=== PATIENT | male | born 1960 | race Caucasian/White ===

== ENCOUNTER 2024-12-10 20:17 | Inpatient (IN) | payer MEDICARE ==
[~2024-12-10] VITALS: Ht 180.3 cm; Wt 68.5 kg
[2024-12-10] MEDS ORDERED: AMIN1TAB PO (20:53)
[2024-12-10] MEDS ORDERED: CALC300T4 PO (20:53)
[2024-12-10] MEDS ORDERED: SUCR1TAB PO (20:53)
[2024-12-10] MEDS ORDERED: SPIR25TA6 PO (20:53)
[2024-12-10] MEDS ORDERED: PANT40TA2 PO (20:53)
[2024-12-10] MEDS ORDERED: LORA0.5T48 PO (20:53)
[2024-12-10] MEDS ORDERED: POLY250017 PO (20:53)
[2024-12-10] MEDS ORDERED: METO25TA6 PO (20:53)
[2024-12-10] MEDS ORDERED: BUME2TAB7 PO (20:53)
[2024-12-10] MEDS ORDERED: GABA-532 PO (20:53)
[2024-12-10] MEDS ORDERED: MAGN400O6 PO (20:53)
[2024-12-10] MEDS ORDERED: ATOR20TA PO (20:53)
[2024-12-10] MEDS ORDERED: NITR0.4T SL (20:53)
[2024-12-10] MEDS ORDERED: HYDR-894 PO (20:53)
[2024-12-10] MEDS ORDERED: NICO-671 TD (20:53)
[2024-12-10] MEDS ORDERED: ACET-3117 PO (20:53)
[2024-12-10] MEDS ORDERED: NA P133E RC (20:53)
[2024-12-10] MEDS ORDERED: SENN-18 PO (20:53)
[2024-12-10] MEDS ORDERED: MULT-213 PO (20:53)
[2024-12-10] MEDS ORDERED: BISA10SU61 RC (20:53)
[2024-12-10] MEDS ORDERED: LACT10SO58 PO (20:53)
[2024-12-10 21:09] LABS: BASOPHILS % (AUTO) 0.9 % (0.0-2.0); DIFFERENTIAL COMMENT 1; EOSINOPHILS # (AUTO) 0.1 K/uL (0.0-0.7); EOSINOPHILS % (AUTO) 2.3 % (0.0-7.0); HEMATOCRIT 27.6 % (36.7-47.1); HEMOGLOBIN 8.9 g/dL (12.5-16.3); LYMPHOCYTES # (AUTO) 0.8 K/uL (0.8-4.8); LYMPHOCYTES % (AUTO) 18.3 % (20.5-51.5); MEAN CORPUSCULAR HEMOGLOBIN 26.6 uug (23.8-33.4); MEAN CORPUSCULAR HGB CONC 32 g/dL (32.5-36.3); MEAN CORPUSCULAR VOLUME 82.6 fL (73.0-96.2); MONOCYTES # (AUTO) 0.7 K/uL (0.1-1.30); MONOCYTES % (AUTO) 14.1 % (0.0-11.0); NEUTROPHILS % (AUTO) 64.4 % (38.5-71.5); PLATELET COUNT (AUTO) 133 K/uL (152-348); RED BLOOD CELL COUNT(AUTO) 3.34 MIL/uL (4.06-5.63); RED CELL DISTRIBUTION WIDTH 19.2 % (12.1-16.2); WHITE BLOOD COUNT (AUTO) 4.6 K/uL (3.6-10.2)
[2024-12-10] MEDS: METOPROLOL TARTRATE 5 MG/5 ML VIAL IVP ONE (21:10)
[2024-12-10 21:16] LABS: CALCIUM 8.6 mg/dL (8.5-10.1); CARBON DIOXIDE 23 mmol/L (21-32); CHLORIDE 102 mmol/L (98-107); CREATININE 1.2 mg/dL (0.6-1.3); GLUCOSE 109 mg/dL (74-106); POTASSIUM 4.7 mmol/L (3.5-5.1); SODIUM SERUM 134 mmol/L (136-145); UREA NITROGEN, BLOOD 47 mg/dL (7-18)
[2024-12-10 21:19] LABS: MAGNESIUM 2.2 mg/dL (1.8-2.4)
[2024-12-10 21:30] LABS: ALANINE AMINOTRANSFERASE 38 U/L (16-63); ALBUMIN 3.1 g/dL (3.4-5.0); ALKALINE PHOSPHATASE 168 U/L (50-136); ASPARTATE AMINOTRANSFERASE 47 U/L (15-37); BILIRUBIN,DIRECT 0.3 mg/dL (0.0-0.2); BILIRUBIN,TOTAL 0.6 mg/dL (0.2-1.0); NT-PRO BNP 17308 pg/mL (0-125)
[2024-12-10 21:34] LABS: THYROID STIMULATING HORMONE 6.737 mIU/mL (0.358-3.740)
[2024-12-10] MEDS ORDERED: diphenhydrAMINE 25 MG CAP PO ONE (21:34)
[2024-12-10] MEDS: diphenhydrAMINE 25 MG CAP PO ONE (21:35)
[2024-12-10] MEDS ORDERED: DILTIAZEM HCL 50 MG IV ONE (22:46)
[2024-12-10] MEDS: DILTIAZEM HCL IV 125 MG in IV NORMAL SALINE 100 ML IV PRN (23:03)
[2024-12-11] VITALS (14 sets, daily range): BP systolic 108–128; BP diastolic 58–101; TEMP 97.8–98.4; O2SAT 93–97
[2024-12-11] MEDS ORDERED: DILTIAZEM HCL IV 125 MG in IV NORMAL SALINE 100 ML IV PRN (01:00)
[2024-12-11] MEDS ORDERED: BISACODYL 10 MG SUPP.RECT RC PRN (01:00)
[2024-12-11] MEDS ORDERED: MAGNESIUM HYDROXIDE 30 ML LIQUID UDC PO PRN (01:00)
[2024-12-11] MEDS ORDERED: hydrALAZINE HCL 25 MG TABLET PO PRN (01:00)
[2024-12-11] MEDS ORDERED: LACTULOSE 20 G/30 ML LIQUID UDC PO PRN ×2 (02:00→05:28)
[2024-12-11] MEDS ORDERED: CALCIUM CARBONATE 500 MG TAB.CHEW PO PRN ×2 (02:00→05:27)
[2024-12-11 07:22] LABS: BASOPHILS % (AUTO) 0.9 % (0.0-2.0); EOSINOPHILS # (AUTO) 0.1 K/uL (0.0-0.7); EOSINOPHILS % (AUTO) 2.5 % (0.0-7.0); HEMATOCRIT 26.6 % (36.7-47.1); HEMOGLOBIN 8.7 g/dL (12.5-16.3); LYMPHOCYTES # (AUTO) 0.7 K/uL (0.8-4.8); LYMPHOCYTES % (AUTO) 16.7 % (20.5-51.5); MEAN CORPUSCULAR HGB CONC 33 g/dL (32.5-36.3); MEAN CORPUSCULAR VOLUME 82.5 fL (73.0-96.2); MONOCYTES # (AUTO) 0.5 K/uL (0.1-1.30); MONOCYTES % (AUTO) 13.7 % (0.0-11.0); NEUTROPHILS # (AUTO) 2.6 K/uL (1.8-8.9); NEUTROPHILS % (AUTO) 66.2 % (38.5-71.5); PLATELET COUNT (AUTO) 121 K/uL (152-348); RED BLOOD CELL COUNT(AUTO) 3.22 MIL/uL (4.06-5.63); RED CELL DISTRIBUTION WIDTH 19.2 % (12.1-16.2)
[2024-12-11 07:29] LABS: DIFFERENTIAL COMMENT 1
[2024-12-11 07:31] LABS: CALCIUM 8.5 mg/dL (8.5-10.1); MAGNESIUM 2.1 mg/dL (1.8-2.4); POTASSIUM 4.3 mmol/L (3.5-5.1)
[2024-12-11] MEDS: BUMETANIDE 1 MG TABLET PO SCH (08:59)
[2024-12-11] MEDS: PANTOPRAZOLE SODIUM 40 MG TABLET.DR PO SCH ×2 (08:59→16:34)
[2024-12-11] MEDS: SPIRONOLACTONE 25 MG TABLET PO SCH (08:59)
[2024-12-11] MEDS: NICOTINE 7 MG/24HR PATCH TD SCH (08:59)
[2024-12-11] MEDS ORDERED: METOPROLOL TARTRATE 25 MG TABLET PO SCH ×2 (09:00)
[2024-12-11] MEDS: MULTIVITAMINS,THERAPEUTIC TABLET PO SCH (09:00)
[2024-12-11] MEDS ORDERED: NICOTINE 14 MG/24HR PATCH TD SCH (09:00)
[2024-12-11] MEDS: METOPROLOL TARTRATE 50 MG TABLET PO SCH (09:00)
[2024-12-11] MEDS ORDERED: GABAPENTIN 100 MG CAPSULE PO SCH (09:00)
[2024-12-11] MEDS: MIRALAX 17 GM POWD.PACK PO SCH (09:00)
[2024-12-11] MEDS ORDERED: AMINO ACIDS PO SCH (09:00)
[2024-12-11] MEDS: SENNOSIDES 1 TABLET PO SCH (09:00)
[2024-12-11] MEDS: SUCRALFATE 1 G TABLET PO SCH (09:06)
[2024-12-11] MEDS: GABAPENTIN 100 MG CAPSULE PO SCH (10:35)
[2024-12-11] MEDS: DILTIAZEM HCL 25 MG IV IV ONE (12:03)
[2024-12-11] MEDS: DILTIAZEM HCL IV 125 MG in IV NORMAL SALINE 100 ML IV PRN (12:16)
[2024-12-11] MEDS: diphenhydrAMINE 50 MG CAPSULE PO PRN (15:03)
[2024-12-11] MEDS: DILTIAZEM HCL CD 240 MG CAP.SR.24H PO SCH (15:52)
[2024-12-11] MEDS: PROTEIN SUPPLEMENT (PROSTAT) 30 ML LIQUID PO SCH (16:37)
[2024-12-11] MEDS: OXYCODONE HCL 5 MG TABLET PO PRN (16:48)
[2024-12-11] MEDS: ATORVASTATIN 20 MG TABLET PO SCH (20:09)
[2024-12-12] VITALS (7 sets, daily range): BP systolic 76–120; BP diastolic 39–79; TEMP 97.6–98.9; O2SAT 94–96
[2024-12-12] MEDS: ACETAMINOPHEN 325 MG TABLET PO PRN (06:37)
[2024-12-12 07:16] LABS: BASOPHILS % (AUTO) 0.6 % (0.0-2.0); EOSINOPHILS # (AUTO) 0.1 K/uL (0.0-0.7); EOSINOPHILS % (AUTO) 0.8 % (0.0-7.0); HEMOGLOBIN 9.2 g/dL (12.5-16.3); LYMPHOCYTES # (AUTO) 0.9 K/uL (0.8-4.8); MEAN CORPUSCULAR HEMOGLOBIN 26.8 uug (23.8-33.4); MEAN CORPUSCULAR HGB CONC 33 g/dL (32.5-36.3); MONOCYTES # (AUTO) 0.8 K/uL (0.1-1.30); MONOCYTES % (AUTO) 13.6 % (0.0-11.0); NEUTROPHILS # (AUTO) 4.4 K/uL (1.8-8.9); PLATELET COUNT (AUTO) 153 K/uL (152-348); RED BLOOD CELL COUNT(AUTO) 3.42 MIL/uL (4.06-5.63); RED CELL DISTRIBUTION WIDTH 19.3 % (12.1-16.2); WHITE BLOOD COUNT (AUTO) 6.2 K/uL (3.6-10.2)
[2024-12-12 07:45] LABS: PHOSPHOROUS 5.3 mg/dL (2.5-4.9); POTASSIUM 4.8 mmol/L (3.5-5.1)
[2024-12-12 07:45] LABS: DIFFERENTIAL COMMENT 1
[2024-12-12 07:59] LABS: CALCIUM 8.6 mg/dL (8.5-10.1); CREATININE 1.7 mg/dL (0.6-1.3)
[2024-12-12 11:45] LABS: LYMPHOCYTES % (MANUAL) 11 % (20-40); METAMYELOCYTES % 1 % (0-1); MONOCYTES % (MANUAL) 13 % (2-10); MYELOCYTES % 5 % (0-0); NEUTROPHILS % (MANUAL) 70 % (42-75); PLATELET ESTIMATE ADEQUATE
[2024-12-12] MEDS: DIVALPROEX 125 MG TABLET.DR PO SCH (13:26)
[2024-12-12] MEDS: OLANZAPINE ZYDIS 5 MG TAB.RAPDIS PO PRN (13:40)
[2024-12-12] MEDS: IV NORMAL SALINE 250 ML IV ONE (16:17)
[2024-12-13 07:06] LABS: BASOPHILS % (AUTO) 0.9 % (0.0-2.0); EOSINOPHILS # (AUTO) 0.1 K/uL (0.0-0.7); EOSINOPHILS % (AUTO) 2.8 % (0.0-7.0); HEMATOCRIT 27.7 % (36.7-47.1); HEMOGLOBIN 8.9 g/dL (12.5-16.3); LYMPHOCYTES # (AUTO) 1.1 K/uL (0.8-4.8); MEAN CORPUSCULAR HEMOGLOBIN 26.7 uug (23.8-33.4); MEAN CORPUSCULAR HGB CONC 32 g/dL (32.5-36.3); MEAN CORPUSCULAR VOLUME 82.7 fL (73.0-96.2); MONOCYTES # (AUTO) 0.7 K/uL (0.1-1.30); MONOCYTES % (AUTO) 14.9 % (0.0-11.0); NEUTROPHILS # (AUTO) 2.6 K/uL (1.8-8.9); NEUTROPHILS % (AUTO) 57.4 % (38.5-71.5); PLATELET COUNT (AUTO) 144 K/uL (152-348); RED BLOOD CELL COUNT(AUTO) 3.35 MIL/uL (4.06-5.63); RED CELL DISTRIBUTION WIDTH 19.3 % (12.1-16.2); WHITE BLOOD COUNT (AUTO) 4.5 K/uL (3.6-10.2)
[2024-12-13 07:13] LABS: DIFFERENTIAL COMMENT 1
[2024-12-13 07:21] LABS: CALCIUM 8.6 mg/dL (8.5-10.1); CREATININE 1.5 mg/dL (0.6-1.3); MAGNESIUM 2.1 mg/dL (1.8-2.4); PHOSPHOROUS 3.5 mg/dL (2.5-4.9); POTASSIUM 4.3 mmol/L (3.5-5.1)
[2024-12-13 07:47] VITALS: BP 131/84; TEMP 98.1; O2SAT 98
[2024-12-13 12:02] VITALS: BP 127/82; TEMP 98.5
[2024-12-13] MEDS: DIVALPROEX 250 MG TABLET.DR PO SCH (13:37)
[2024-12-13] MEDS ORDERED: DIVALPROEX 125 MG TABLET.DR PO SCH (14:00)
[2024-12-13 16:37] VITALS: BP 124/78; TEMP 98; O2SAT 95
[2024-12-13] MEDS: METOPROLOL TARTRATE 25 MG TABLET PO ONE (18:16)
[2024-12-14] MEDS: LORAZEPAM 0.5 MG TABLET PO PRN (01:30)
[2024-12-14 07:19] LABS: BASOPHILS % (AUTO) 0.5 % (0.0-2.0); EOSINOPHILS # (AUTO) 0.1 K/uL (0.0-0.7); EOSINOPHILS % (AUTO) 2.7 % (0.0-7.0); HEMATOCRIT 30.4 % (36.7-47.1); HEMOGLOBIN 9.7 g/dL (12.5-16.3); LYMPHOCYTES # (AUTO) 1.2 K/uL (0.8-4.8); LYMPHOCYTES % (AUTO) 22.4 % (20.5-51.5); MEAN CORPUSCULAR HEMOGLOBIN 26.3 uug (23.8-33.4); MEAN CORPUSCULAR HGB CONC 32 g/dL (32.5-36.3); MEAN CORPUSCULAR VOLUME 82.8 fL (73.0-96.2); MONOCYTES # (AUTO) 0.7 K/uL (0.1-1.30); MONOCYTES % (AUTO) 13.3 % (0.0-11.0); NEUTROPHILS # (AUTO) 3.3 K/uL (1.8-8.9); NEUTROPHILS % (AUTO) 61.1 % (38.5-71.5); PLATELET COUNT (AUTO) 171 K/uL (152-348); RED BLOOD CELL COUNT(AUTO) 3.68 MIL/uL (4.06-5.63); WHITE BLOOD COUNT (AUTO) 5.4 K/uL (3.6-10.2)
[2024-12-14 07:22] LABS: DIFFERENTIAL COMMENT 1
[2024-12-14 07:30] VITALS: BP 135/72; TEMP 98; O2SAT 95
[2024-12-14 07:36] LABS: CREATININE 1.1 mg/dL (0.6-1.3); MAGNESIUM 2.2 mg/dL (1.8-2.4); PHOSPHOROUS 3.4 mg/dL (2.5-4.9)
[2024-12-14 12:00] VITALS: BP 104/82; TEMP 97.8; O2SAT 95
[2024-12-14] MEDS: METOPROLOL TARTRATE 25 MG TABLET PO ONE (14:49)
[2024-12-14 18:55] VITALS: BP 109/80; TEMP 97.6; O2SAT 95
[2024-12-14] MEDS: risperiDONE-M 0.5 MG TAB.RAPDIS PO SCH (21:33)
[2024-12-15 00:42] VITALS: O2SAT 97
[2024-12-15] MEDS: METOPROLOL TARTRATE 25 MG TABLET PO PRN ×2 (01:15→09:02)
[2024-12-15] MEDS: OLANZAPINE 10 MG VIAL IM PRN (02:32)
[2024-12-15 07:08] LABS: BASOPHILS % (AUTO) 0.8 % (0.0-2.0); EOSINOPHILS # (AUTO) 0.1 K/uL (0.0-0.7); EOSINOPHILS % (AUTO) 2.3 % (0.0-7.0); HEMATOCRIT 28.5 % (36.7-47.1); HEMOGLOBIN 9.1 g/dL (12.5-16.3); LYMPHOCYTES # (AUTO) 1.2 K/uL (0.8-4.8); LYMPHOCYTES % (AUTO) 24.5 % (20.5-51.5); MEAN CORPUSCULAR HEMOGLOBIN 26.5 uug (23.8-33.4); MEAN CORPUSCULAR HGB CONC 32 g/dL (32.5-36.3); MEAN CORPUSCULAR VOLUME 82.5 fL (73.0-96.2); MONOCYTES # (AUTO) 0.7 K/uL (0.1-1.30); MONOCYTES % (AUTO) 15.2 % (0.0-11.0); NEUTROPHILS # (AUTO) 2.8 K/uL (1.8-8.9); NEUTROPHILS % (AUTO) 57.2 % (38.5-71.5); PLATELET COUNT (AUTO) 163 K/uL (152-348); RED BLOOD CELL COUNT(AUTO) 3.45 MIL/uL (4.06-5.63); RED CELL DISTRIBUTION WIDTH 19.2 % (12.1-16.2); WHITE BLOOD COUNT (AUTO) 4.8 K/uL (3.6-10.2)
[2024-12-15 07:23] LABS: DIFFERENTIAL COMMENT 1
[2024-12-15 07:25] LABS: CALCIUM 8.8 mg/dL (8.5-10.1); CREATININE 1.2 mg/dL (0.6-1.3); MAGNESIUM 2.3 mg/dL (1.8-2.4); POTASSIUM 5.3 mmol/L (3.5-5.1)
[2024-12-15 07:27] LABS: EOSINOPHILS % (MANUAL) 3 % (0-8); LYMPHOCYTES % (MANUAL) 25 % (20-40); MONOCYTES % (MANUAL) 15 % (2-10); NEUTROPHILS % (MANUAL) 57 % (42-75); PLATELET ESTIMATE ADEQUATE
[2024-12-15 07:28] LABS: ANISOCYTOSIS 2+
[2024-12-15 07:54] VITALS: BP 116/82; TEMP 97.6; O2SAT 97
[2024-12-15 16:09] VITALS: BP 119/68; TEMP 97.4; O2SAT 95
[2024-12-15 19:00] VITALS: BP 100/79; TEMP 97.8; O2SAT 96
[2024-12-16 06:50] VITALS: BP 124/84; TEMP 98
[2024-12-16 08:11] VITALS: BP 122/81; TEMP 97.9
[2024-12-16 09:17] LABS: BASOPHILS % (AUTO) 0.7 % (0.0-2.0); EOSINOPHILS # (AUTO) 0.1 K/uL (0.0-0.7); EOSINOPHILS % (AUTO) 2.7 % (0.0-7.0); HEMATOCRIT 27.4 % (36.7-47.1); HEMOGLOBIN 8.8 g/dL (12.5-16.3); LYMPHOCYTES # (AUTO) 0.7 K/uL (0.8-4.8); LYMPHOCYTES % (AUTO) 18.8 % (20.5-51.5); MEAN CORPUSCULAR HEMOGLOBIN 26.6 uug (23.8-33.4); MEAN CORPUSCULAR HGB CONC 32 g/dL (32.5-36.3); MEAN CORPUSCULAR VOLUME 82.7 fL (73.0-96.2); MONOCYTES # (AUTO) 0.5 K/uL (0.1-1.30); MONOCYTES % (AUTO) 12.3 % (0.0-11.0); NEUTROPHILS # (AUTO) 2.5 K/uL (1.8-8.9); NEUTROPHILS % (AUTO) 65.5 % (38.5-71.5); PLATELET COUNT (AUTO) 141 K/uL (152-348); RED BLOOD CELL COUNT(AUTO) 3.31 MIL/uL (4.06-5.63); RED CELL DISTRIBUTION WIDTH 19.3 % (12.1-16.2); WHITE BLOOD COUNT (AUTO) 3.8 K/uL (3.6-10.2)
[2024-12-16 09:20] LABS: DIFFERENTIAL COMMENT 1
[2024-12-16 09:28] LABS: CALCIUM 8.8 mg/dL (8.5-10.1); CREATININE 1.2 mg/dL (0.6-1.3); MAGNESIUM 2.2 mg/dL (1.8-2.4); PHOSPHOROUS 3.4 mg/dL (2.5-4.9); POTASSIUM 4.8 mmol/L (3.5-5.1)
[2024-12-16 12:04] VITALS: BP 124/61; TEMP 97.8
[2024-12-16] MEDS: ONDANSETRON 4 MG/2 ML VIAL IV PRN (14:32)
[2024-12-16 16:27] VITALS: BP 114/71; TEMP 97.9
[2024-12-16 20:00] VITALS: BP 111/68; TEMP 98.3; O2SAT 90
[2024-12-17] VITALS (8 sets, daily range): BP systolic 82–118; BP diastolic 47–89; TEMP 97.7–99.8; O2SAT 90–98
[2024-12-17 06:57] LABS: BASOPHILS % (AUTO) 1.3 % (0.0-2.0); EOSINOPHILS # (AUTO) 0.1 K/uL (0.0-0.7); EOSINOPHILS % (AUTO) 2.6 % (0.0-7.0); HEMATOCRIT 25.3 % (36.7-47.1); HEMOGLOBIN 8.2 g/dL (12.5-16.3); LYMPHOCYTES # (AUTO) 0.9 K/uL (0.8-4.8); LYMPHOCYTES % (AUTO) 23.4 % (20.5-51.5); MEAN CORPUSCULAR HEMOGLOBIN 26.5 uug (23.8-33.4); MEAN CORPUSCULAR HGB CONC 33 g/dL (32.5-36.3); MEAN CORPUSCULAR VOLUME 81.8 fL (73.0-96.2); MONOCYTES # (AUTO) 0.5 K/uL (0.1-1.30); MONOCYTES % (AUTO) 12.6 % (0.0-11.0); NEUTROPHILS # (AUTO) 2.2 K/uL (1.8-8.9); NEUTROPHILS % (AUTO) 60.1 % (38.5-71.5); PLATELET COUNT (AUTO) 134 K/uL (152-348); RED CELL DISTRIBUTION WIDTH 19.2 % (12.1-16.2); WHITE BLOOD COUNT (AUTO) 3.7 K/uL (3.6-10.2)
[2024-12-17 07:13] LABS: DIFFERENTIAL COMMENT 1
[2024-12-17 07:15] LABS: CALCIUM 8.5 mg/dL (8.5-10.1); PHOSPHOROUS 4.1 mg/dL (2.5-4.9); POTASSIUM 4.7 mmol/L (3.5-5.1)
[2024-12-17 09:33] LABS: LYMPHOCYTES % (MANUAL) 24 % (20-40); METAMYELOCYTES % 2 % (0-1); MONOCYTES % (MANUAL) 11 % (2-10); MYELOCYTES % 1 % (0-0); NEUTROPHILS % (MANUAL) 62 % (42-75)
[2024-12-17 09:34] LABS: ANISOCYTOSIS 2+; PLATELET ESTIMATE DECREASED
[2024-12-17] MEDS: IV NORMAL SALINE 250 ML IV ONE (11:59)
[2024-12-17] MEDS ORDERED: IV NS 1000 ML 1,000 ML IV ONE (12:00)
[2024-12-17] MEDS ORDERED: FAMOTIDINE. 20 MG/2 ML VIAL IV ONE (15:30)
[2024-12-17] MEDS: PROPOFOL 100 ML IV ONE (15:30)
[2024-12-17] MEDS ORDERED: FENTANYL CITRATE 100 MCG/2 ML AMPUL ONE (15:30)
[2024-12-17] MEDS ORDERED: BUPIVACAINE PF 0.5% 30 ML VIAL ONE (15:47)
[2024-12-17] MEDS ORDERED: LIDOCAINE HCL 1% 20 ML VIAL ONE (15:47)
[2024-12-17] MEDS ORDERED: DILTIAZEM HCL 25 MG IV ONE (16:13)
[2024-12-17] MEDS ORDERED: ETOMIDATE 20 MG/10 ML VIAL ONE (16:34)
[2024-12-17] MEDS ORDERED: METOPROLOL TARTRATE 50 MG TABLET PO SCH (22:59)
[2024-12-17] MEDS: DILTIAZEM HCL 30 MG TABLET PO SCH (23:20)
[2024-12-17] MEDS: METOPROLOL TARTRATE 25 MG TABLET PO ONE (23:25)
[2024-12-18] VITALS: BP 118/62; TEMP 98.2; O2SAT 94
[2024-12-18] MEDS: METOPROLOL TARTRATE 50 MG TABLET PO ONE (02:54)
[2024-12-18 07:59] VITALS: BP 104/70; TEMP 98.2; O2SAT 94; O2SAT 95
[2024-12-18] MEDS: METOPROLOL TARTRATE 50 MG TABLET PO SCH (08:17)
[2024-12-18] MEDS: BUMETANIDE 1 MG/4 ML VIAL IV ONE (08:19)
[2024-12-18] MEDS ORDERED: METOPROLOL TARTRATE 50 MG TABLET PO SCH ×2 (11:15→22:59)
[2024-12-18 11:20] VITALS: BP 112/74; TEMP 97.6; O2SAT 92
[2024-12-18 16:05] VITALS: BP 113/79; TEMP 97.6; O2SAT 92; O2SAT 96
[2024-12-18 16:53] VITALS: BP 113/79
[2024-12-18] MEDS ORDERED: DILT90TA10 PO (20:50)
[2024-12-18] MEDS ORDERED: OLAN5TAB6 PO (20:50)
[2024-12-18] MEDS ORDERED: RISP1TAB7 PO (20:50)
[2024-12-18] MEDS ORDERED: DIVA250T4 PO (20:50)
[2024-12-18] MEDS ORDERED: DIPH25CA83 PO (20:50)
[2024-12-18] MEDS ORDERED: PROT30LI PO (20:50)
[2024-12-18] MEDS ORDERED: OXYC10TA49 PO (20:50)
[2024-12-18] MEDS ORDERED: ONDA4TAB5 IVP (20:50)
[2024-12-18] MEDS ORDERED: risperiDONE-M 0.5 MG TAB.RAPDIS PO SCH (21:00)
[2024-12-19] MEDS ORDERED: BUMETANIDE 1 MG TABLET PO SCH (09:00)
[2024-12-19] MEDS ORDERED: METO50TA16 PO (11:55)
== END 2024-12-18 18:25 | DRG 242 ==
LOC: ER 20:37 → CCU 23:21 → TELE3 12-11 07:15
PROVIDERS: ATTEND Nurse Practitioner Acute Care
PROC: 02HK3JZ Insertion of Pacemaker Lead into Right Ventricle, Percutaneous Approach (ICD-10-PCS; 2024-12-17)
PROC: 0JH604Z Insertion of Pacemaker, Single Chamber into Chest Subcutaneous Tissue and Fascia, Open Approach (ICD-10-PCS; principal; 2024-12-17 15:30)
DX: I48.20 Chronic atrial fibrillation, unspecified (principal); I50.43 Acute on chronic combined systolic (congestive) and diastolic (congestive) heart failure; N17.9 Acute kidney failure, unspecified; K76.6 Portal hypertension; E87.1 Hypo-osmolality and hyponatremia; I49.5 Sick sinus syndrome; I45.2 Bifascicular block; I48.0 Paroxysmal atrial fibrillation; I48.92 Unspecified atrial flutter; K74.60 Unspecified cirrhosis of liver; F31.9 Bipolar disorder, unspecified; D63.8 Anemia in other chronic diseases classified elsewhere; F17.210 Nicotine dependence, cigarettes, uncomplicated; Z88.5 Allergy status to narcotic agent; Z78.1 Physical restraint status; E78.5 Hyperlipidemia, unspecified; F10.21 Alcohol dependence, in remission; I25.10 Atherosclerotic heart disease of native coronary artery without angina pectoris; B19.20 Unspecified viral hepatitis C without hepatic coma; I42.9 Cardiomyopathy, unspecified; I11.0 Hypertensive heart disease with heart failure; Z87.11 Personal history of peptic ulcer disease; Z91.199 Patient's noncompliance with other medical treatment and regimen due to unspecified reason; D69.6 Thrombocytopenia, unspecified
CPT/HCPCS: 36415; 71045; 83550; 83735; 84100; 84443; 84484; 85025; 85610; 85730; 93005; 93307; A4606; A4663; A9150; G0378; J2358; J2405; J3010; J3490; J7040; Q0163

== ENCOUNTER 2024-12-18 18:36 | Inpatient (IN) | payer MEDICARE, OTHER ==
[~2024-12-18] VITALS: Ht 175.3 cm; Wt 74.4 kg
[~2024-12-18 18:36] MED LIST: ACET-3117 PO; AMIN1TAB PO; ATOR20TA PO; BISA10SU61 RC; BUME2TAB7 PO; CALC300T4 PO; GABA-532 PO; HYDR-894 PO; LACT10SO58 PO; LORA0.5T48 PO; MAGN400O6 PO; METO25TA6 PO; MULT-213 PO; NA P133E RC; NICO-671 TD; NITR0.4T SL; PANT40TA2 PO; POLY250017 PO; SENN-18 PO; SPIR25TA6 PO; SUCR1TAB PO
[2024-12-18 20:00] VITALS: BP 101/69; TEMP 98.2; O2SAT 95
[2024-12-18] MEDS ORDERED: MAGNESIUM HYDROXIDE 30 ML LIQUID UDC PO PRN (20:00)
[2024-12-18] MEDS: BLOOD SUGAR DIAGNOSTIC 1 EACH STRIP VI ONE (20:00)
[2024-12-18] MEDS ORDERED: ZOLPIDEM 5 MG TABLET PO PRN (20:00)
[2024-12-18] MEDS ORDERED: QUETIAPINE FUMARATE 25 MG TABLET PO PRN (20:00)
[2024-12-18] MEDS ORDERED: PROT30LI PO (20:50)
[2024-12-18] MEDS ORDERED: DIVA250T4 PO (20:50)
[2024-12-18] MEDS ORDERED: ONDA4TAB5 IVP (20:50)
[2024-12-18] MEDS ORDERED: DIPH25CA83 PO (20:50)
[2024-12-18] MEDS ORDERED: OLAN5TAB6 PO (20:50)
[2024-12-18] MEDS ORDERED: OXYC10TA49 PO (20:50)
[2024-12-18] MEDS ORDERED: RISP1TAB7 PO (20:50)
[2024-12-18] MEDS ORDERED: DILT90TA10 PO (20:50)
[2024-12-18] MEDS: ZOLPIDEM 5 MG TABLET PO PRN (21:52)
[2024-12-18] MEDS: ACETAMINOPHEN 325 MG TABLET PO PRN (21:52)
[2024-12-19] MEDS ORDERED: ZOLPIDEM 5 MG TABLET PO PRN ×2 (05:15)
[2024-12-19 07:56] VITALS: BP 125/53; TEMP 98; O2SAT 92
[2024-12-19] MEDS ORDERED: Medication Not On Formulary EA (Acetaminophen 650 MG) PO PRN (10:15)
[2024-12-19] MEDS ORDERED: MAGNESIUM HYDROXIDE 30 ML LIQUID UDC PO PRN (10:15)
[2024-12-19] MEDS ORDERED: Medication Not On Formulary EA (Lactulose 10 GM) PO PRN (10:15)
[2024-12-19] MEDS ORDERED: CALCIUM CARBONATE 500 MG TAB.CHEW PO PRN (11:30)
[2024-12-19] MEDS ORDERED: LACTULOSE 20 G/30 ML LIQUID UDC PO PRN (11:45)
[2024-12-19] MEDS ORDERED: METO50TA16 PO (11:55)
[2024-12-19] MEDS: DILTIAZEM HCL 90 MG TABLET PO SCH (11:57)
[2024-12-19] MEDS: BUMETANIDE 1 MG TABLET PO SCH (11:58)
[2024-12-19] MEDS: SUCRALFATE 1 G TABLET PO SCH (11:58)
[2024-12-19] MEDS: METOPROLOL TARTRATE 50 MG TABLET PO SCH (12:00)
[2024-12-19] MEDS: DILTIAZEM HCL 30 MG TABLET PO SCH (12:00)
[2024-12-19] MEDS: PROTEIN SUPPLEMENT (PROSTAT) 30 ML LIQUID PO SCH (12:06)
[2024-12-19] MEDS: DIVALPROEX 250 MG TABLET.DR PO SCH (13:18)
[2024-12-19] MEDS: GABAPENTIN 100 MG CAPSULE PO SCH (13:18)
[2024-12-19] MEDS: OXYCODONE HCL 5 MG TABLET PO PRN (13:19)
[2024-12-19] MEDS ORDERED: DIVALPROEX 125 MG TABLET.DR PO SCH (14:00)
[2024-12-19 15:07] VITALS: BP 100/76; TEMP 98; O2SAT 96
[2024-12-19] MEDS: PANTOPRAZOLE SODIUM 40 MG TABLET.DR PO SCH (16:38)
[2024-12-19] MEDS: SENNOSIDES 1 TABLET PO SCH (16:38)
[2024-12-19] MEDS ORDERED: Medication Not On Formulary EA (Protein Supplement (Prosource) 30 ML) PO SCH (17:00)
[2024-12-19] MEDS: diphenhydrAMINE 25 MG CAP PO ONE (20:16)
[2024-12-19] MEDS: ATORVASTATIN 20 MG TABLET PO SCH (20:16)
[2024-12-19] MEDS: risperiDONE 1 MG TABLET PO SCH (20:20)
[2024-12-19] MEDS ORDERED: METOPROLOL TARTRATE 25 MG TABLET PO SCH (21:00)
[2024-12-19 21:45] VITALS: BP 118/75; TEMP 97.6; O2SAT 96
[2024-12-20 07:58] VITALS: BP 110/71; TEMP 98; O2SAT 98
[2024-12-20] MEDS: MULTIVITAMINS,THERAPEUTIC TABLET PO SCH (08:48)
[2024-12-20] MEDS: SPIRONOLACTONE 25 MG TABLET PO SCH (08:49)
[2024-12-20] MEDS: NICOTINE 14 MG/24HR PATCH TD SCH (08:52)
[2024-12-20] MEDS ORDERED: Medication Not On Formulary EA (Polyethylene Glycol 3350 17 GM) PO SCH (09:00)
[2024-12-20] MEDS ORDERED: Medication Not On Formulary EA (Bumetanide (Bumex) 2 MG) PO SCH (09:00)
[2024-12-20] MEDS ORDERED: Medication Not On Formulary EA (Multivitamins W-Minerals (Multivitamin With Minerals) 1 PO SCH (09:00)
[2024-12-20 19:54] VITALS: BP 93/59; TEMP 98; O2SAT 94
[2024-12-20] MEDS: risperiDONE 2 MG TABLET PO SCH (21:05)
[2024-12-21 07:35] LABS: BASOPHILS % (AUTO) 0.4 % (0.0-2.0); EOSINOPHILS # (AUTO) 0.1 K/uL (0.0-0.7); EOSINOPHILS % (AUTO) 2.4 % (0.0-7.0); HEMOGLOBIN 8.5 g/dL (12.5-16.3); LYMPHOCYTES # (AUTO) 0.9 K/uL (0.8-4.8); LYMPHOCYTES % (AUTO) 23.8 % (20.5-51.5); MEAN CORPUSCULAR HEMOGLOBIN 26.4 uug (23.8-33.4); MEAN CORPUSCULAR HGB CONC 33 g/dL (32.5-36.3); MONOCYTES # (AUTO) 0.5 K/uL (0.1-1.30); NEUTROPHILS # (AUTO) 2.4 K/uL (1.8-8.9); NEUTROPHILS % (AUTO) 60.4 % (38.5-71.5); PLATELET COUNT (AUTO) 122 K/uL (152-348); RED BLOOD CELL COUNT(AUTO) 3.21 MIL/uL (4.06-5.63); RED CELL DISTRIBUTION WIDTH 18.9 % (12.1-16.2); WHITE BLOOD COUNT (AUTO) 3.9 K/uL (3.6-10.2)
[2024-12-21 07:39] LABS: DIFFERENTIAL COMMENT 1
[2024-12-21 07:56] LABS: ALBUMIN 2.4 g/dL (3.4-5.0); BILIRUBIN,TOTAL 0.4 mg/dL (0.2-1.0); CALCIUM 8.4 mg/dL (8.5-10.1); CREATININE 1.1 mg/dL (0.6-1.3); MAGNESIUM 1.7 mg/dL (1.8-2.4); PHOSPHOROUS 4.4 mg/dL (2.5-4.9); TOTAL PROTEIN, SERUM 6.9 g/dL (6.4-8.2)
[2024-12-21 08:18] VITALS: BP 128/71; TEMP 97.9; O2SAT 99
[2024-12-21] MEDS: risperiDONE 1 MG TABLET PO SCH (08:54)
[2024-12-21] MEDS: MAGNESIUM OXIDE 400 MG TABLET PO ONE (12:37)
[2024-12-21 16:22] VITALS: BP 131/82; TEMP 98.5; O2SAT 99
[2024-12-21 21:34] VITALS: BP 127/79; TEMP 94.2; O2SAT 93
[2024-12-22 07:34] LABS: BASOPHILS % (AUTO) 0.9 % (0.0-2.0); EOSINOPHILS # (AUTO) 0.1 K/uL (0.0-0.7); EOSINOPHILS % (AUTO) 2.1 % (0.0-7.0); HEMOGLOBIN 8.9 g/dL (12.5-16.3); LYMPHOCYTES # (AUTO) 1.3 K/uL (0.8-4.8); LYMPHOCYTES % (AUTO) 28.2 % (20.5-51.5); MEAN CORPUSCULAR HGB CONC 32 g/dL (32.5-36.3); MEAN CORPUSCULAR VOLUME 81.9 fL (73.0-96.2); MONOCYTES # (AUTO) 0.8 K/uL (0.1-1.30); MONOCYTES % (AUTO) 16.7 % (0.0-11.0); NEUTROPHILS # (AUTO) 2.4 K/uL (1.8-8.9); NEUTROPHILS % (AUTO) 52.1 % (38.5-71.5); PLATELET COUNT (AUTO) 157 K/uL (152-348); RED BLOOD CELL COUNT(AUTO) 3.42 MIL/uL (4.06-5.63); RED CELL DISTRIBUTION WIDTH 19.1 % (12.1-16.2); WHITE BLOOD COUNT (AUTO) 4.6 K/uL (3.6-10.2)
[2024-12-22 07:56] LABS: DIFFERENTIAL COMMENT 1
[2024-12-22 08:33] VITALS: BP 109/71; TEMP 98; O2SAT 94
[2024-12-22 13:47] LABS: ANISOCYTOSIS 2+; BAND % (MANUAL) 3 % (0-10); EOSINOPHILS % (MANUAL) 2 % (0-8); LYMPHOCYTES % (MANUAL) 30 % (20-40); MONOCYTES % (MANUAL) 17 % (2-10); NEUTROPHILS % (MANUAL) 48 % (42-75); PLATELET ESTIMATE ADEQUATE
[2024-12-22 16:22] VITALS: BP 105/65; TEMP 98; O2SAT 98
[2024-12-22 20:00] VITALS: BP 97/65; TEMP 97.6; O2SAT 94
[2024-12-22] MEDS: MAG HYDROX/AL HYDROX/SIMETH 30 ML LIQUID UDC PO PRN (20:37)
[2024-12-23 08:28] VITALS: BP 126/75; TEMP 98.2; O2SAT 94
[2024-12-23 15:28] VITALS: BP 104/64; TEMP 98; O2SAT 94
[2024-12-23 20:16] VITALS: BP 90/51; TEMP 98; O2SAT 94
[2024-12-23 20:56] VITALS: BP 113/71
[2024-12-24 08:00] VITALS: BP 104/58; TEMP 97.5; O2SAT 94
[2024-12-24] MEDS ORDERED: DIVALPROEX 250 MG TABLET.DR PO SCH (14:00)
[2024-12-24] MEDS: DIVALPROEX 125 MG TABLET.DR PO SCH (14:03)
[2024-12-24 16:00] VITALS: BP 126/86; TEMP 98.7; O2SAT 97
[2024-12-24 20:00] VITALS: BP 97/69; TEMP 98.3; O2SAT 93
[2024-12-24 20:02] VITALS: BP 104/69; O2SAT 95
[2024-12-25 06:38] VITALS: BP 103/52
[2024-12-25 08:14] VITALS: BP 109/47; TEMP 98.5; O2SAT 97
[2024-12-25 16:24] VITALS: BP 127/64; TEMP 97.9; O2SAT 100
[2024-12-25 19:54] VITALS: BP 103/70; TEMP 98.2; O2SAT 95
[2024-12-26] MEDS ORDERED: SUCRALFATE 1 G/10 ML LIQUID UDC ONE (05:46)
[2024-12-26 08:02] VITALS: BP 110/73; TEMP 98; O2SAT 93
[2024-12-26 15:23] VITALS: BP 113/75; TEMP 98; O2SAT 90
[2024-12-26 19:54] VITALS: BP 102/62; TEMP 98.1; O2SAT 94
[2024-12-27 08:03] VITALS: BP 116/70; TEMP 98; O2SAT 90
[2024-12-27] MEDS: NICOTINE 7 MG/24HR PATCH TD SCH (12:03)
[2024-12-27] MEDS ORDERED: DIVALPROEX 125 MG TABLET.DR PO SCH (14:00)
[2024-12-27] MEDS: DIVALPROEX 500 MG TABLET.DR PO SCH (15:00)
[2024-12-27 15:46] VITALS: BP 127/86; TEMP 98; O2SAT 96
[2024-12-27 20:00] VITALS: BP 105/69; TEMP 97.5; O2SAT 95
[2024-12-28 08:58] VITALS: BP 134/74; TEMP 98.1; O2SAT 99
[2024-12-28 12:00] VITALS: BP 117/67
== END 2024-12-28 14:00 | DRG 885 ==
LOC: GPS 18:36
PROVIDERS: ADMIT Psychiatry & Neurology Psychiatry; ATTEND Nurse Practitioner Acute Care
DX: F39 Unspecified mood [affective] disorder (principal); N18.9 Chronic kidney disease, unspecified; N17.9 Acute kidney failure, unspecified; I42.9 Cardiomyopathy, unspecified; I13.0 Hypertensive heart and chronic kidney disease with heart failure and stage 1 through stage 4 chronic kidney disease, or unspecified chronic kidney disease; I48.92 Unspecified atrial flutter; I48.0 Paroxysmal atrial fibrillation; F31.9 Bipolar disorder, unspecified; F17.210 Nicotine dependence, cigarettes, uncomplicated; Z95.0 Presence of cardiac pacemaker; K74.60 Unspecified cirrhosis of liver; F10.21 Alcohol dependence, in remission; F25.9 Schizoaffective disorder, unspecified; K21.9 Gastro-esophageal reflux disease without esophagitis; G89.4 Chronic pain syndrome; Z87.11 Personal history of peptic ulcer disease; Z88.5 Allergy status to narcotic agent; Z79.899 Other long term (current) drug therapy; G47.00 Insomnia, unspecified; E78.5 Hyperlipidemia, unspecified; I25.10 Atherosclerotic heart disease of native coronary artery without angina pectoris; Z86.19 Personal history of other infectious and parasitic diseases; I50.9 Heart failure, unspecified; M54.50 Low back pain, unspecified; Z91.199 Patient's noncompliance with other medical treatment and regimen due to unspecified reason; Z87.898 Personal history of other specified conditions
CPT/HCPCS: 36415; 80164; 83735; 84100; 85025; 85049; A9150; J3490; Q0163